=== PATIENT | male | born 2005 | race Caucasian/White ===

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

== ENCOUNTER 2025-07-24 16:53 | Emergency (ER) | payer OTHER, SELFPAY ==
--- NOTE | 2025-07-24 16:45 | RT.EKG_ITS ---
APPROVED REPORT Exam: Resting ECG Reason for Exam: Chest Tightness Patient Location: E HR:111 bpm ECG Measurements Heart Rate 111 AXIS OH 131 P 80 QRSd 86 QRS 84 QT 316 T 51 QTc 430 Conclusion Sinus tachycardia...rate> 99 Right atrial enlargement...P>0.25mV 2 lds or<-0.24mV aVR/aVL
[2025-07-24 17:05] VITALS: BP 159/89; PULSE 113; RESP 24; TEMP 37.1; O2SAT 94
[2025-07-24 17:09] VITALS: BP 159/89; PULSE 113; RESP 24; TEMP 37.1; O2SAT 94
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
[2025-07-24] MEDS: Albuterol/Ipratropium 3 ML UPD VIAL UPD (17:29)
--- NOTE | 2025-07-24 18:15 | DI.RAD_ITS ---
Exam(s) XR CHEST 2V PA LATERAL EXAM: XR CHEST 2V PA LATERAL CLINICAL HISTORY: asthma. TECHNIQUE: 2D digital imaging was performed. COMPARISON: CR XR CHEST 2V PA LATERAL from 12/05/2022 FINDINGS: 2 views: Heart size is normal. The mediastinum is not widened. There is mild hyperinflation no infiltrates nor pleural effusions. No pneumothorax. IMPRESSION: No acute pulmonary findings. DATA REPOSITORY: RADIATION DOSE DELIVERED:
[2025-07-24 18:35] VITALS: PULSE 87; RESP 18; O2SAT 96
[2025-07-24] MEDS: ALBUTEROL 15 MG, SODIUM CHLORIDE 0.9% FOR INH. 3 ML UPD (18:35)
[2025-07-24] MEDS: methylPREDNISolone SUCC 125 MG VIAL IVP (18:43)
[2025-07-24 18:48] LABS: Abs Immature Grans 0.06 10^3/uL (0.0-0.06); HCT 47.0 % (40.0-50.0); HGB 15.7 g/dL (13.5-17.5); Immature Grans % 0.5 %; MCH 29.5 pg (27.0-33.0); MCHC 33.4 % (32.0-36.0); MCV 88 fL (80-95); MPV 11.7 fL (8.0-11.0); Platelet Count 185 10^3/uL (130-400); RBC 5.33 10^6/uL (4.36-5.78); RDW 13.1 % (11.8-14.1); RDW-SD 42.2 fL; WBC 12.86 10^3/uL (4.4-10.8)
[2025-07-24 19:05] LABS: ALT 35 U/L (16-63); AST 15 U/L (15-37); Albumin 4.4 g/dL (3.4-5.0); Alkaline Phosphatase 112 U/L (46-116); Anion Gap 11.7 mmol/L (3-11); BUN 8 mg/dL (7-18); Bilirubin, Total 1.1 mg/dL (0.2-1.0); CO2 27.3 mmol/L (21.0-32.0); Calcium 9.1 mg/dL (8.5-10.1); Chloride 102 mmol/L (98-107); Glucose 107 mg/dL (74-106); Potassium 3.6 mmol/L (3.5-5.1); Sodium 141 mmol/L (136-145); Total Protein 7.8 g/dL (6.4-8.2)
[2025-07-24 19:20] LABS: COVID-19 PCR Negative (Negative); RSV PCR Negative (Negative)
[2025-07-24 19:50] VITALS: BP 126/66; PULSE 78; RESP 18; TEMP 36.7; O2SAT 97
== END 2025-07-24 20:05 | disposition home or self-care (01) ==
PROVIDERS: Emergency Provider Physician Assistant; PCP Pediatrics
DX: J45.901 Unspecified asthma with (acute) exacerbation (principal)
CPT/HCPCS: 99284 ×2; 94640; 96374; 36415; 80053; 87637; 93005; 71046; 85025; 93010; J2919; J7613; J7620